=== PATIENT | female | born 1980 | race Caucasian/White ===

== ENCOUNTER 2017-02-19 18:05 | Emergency (ER) | payer MEDICAID, OTHER ==
[2017-02-19 18:06] VITALS: BMI 34.0
[2017-02-19 18:17] VITALS: BP 121/85; PULSE 91; RESP 16; TEMP 98.6; O2SAT 99
--- NOTE | 2017-02-19 20:35 | ED PDOC ---
Arrival/HPI - General Chief Complaint: ENT Problem Time Seen by Provider: 02/19/17 20:33 Historian: Patient - History of Present Illness Narrative History of Present Illness (Text): 02/19/17 22:05 36-year-old female presents today stating that for the past 4 days she's been unable to hear from her right ear. Patient states she uses Q-tips. Patient states the ears feels clogged. She denies pain. Denies fevers or chills. Patient denies URI symptoms. Patient states she has been applying ear wax softening drops without improvement. Time/Duration: Other (4 days) Past Medical History - Provider Review Nursing Documentation Reviewed: Yes - Travel History Have you recently traveled outside [place] w/in the past 3 mons?: No - Past History Past History: No Previous - Infectious Disease Hx of Infectious Diseases: None - Tetanus Immunization Tetanus Immunization: Unknown - Cardiac Hx Cardiac Disorders: No - Pulmonary Hx Respiratory Disorders: No - Neurological Hx Neurological Disorder: No - HEENT Hx HEENT Disorder: No - Renal Hx Renal Disorder: No - Endocrine/Metabolic Hx Endocrine Disorders: No - Hematological/Oncological Hx Blood Disorders: No - Integumentary Hx Dermatological Disorder: No - Musculoskeletal/Rheumatological Hx Musculoskeletal Disorders: No - Gastrointestinal Hx Gastrointestinal Disorders: No - Genitourinary/Gynecological Hx Genitourinary Disorders: Yes Hx Urinary Tract Infection: Yes - Psychiatric Hx Psychophysiologic Disorder: No Hx Substance Use: No - Surgical History Hx Section: Yes Other/Comment: - Anesthesia Hx Anesthesia: Yes - Suicidal Assessment Feels Threatened In Home Enviroment: No Family/Social History - Physician Review Nursing Documentation Reviewed: Yes Family/Social History: Unknown Family HX Smoking Status: Unknown If Ever Smoked Hx Alcohol Use: No Hx Substance Use: No Allergies/Home Meds Allergies/Adverse Reactions: Allergies No Known Allergies Allergy (Verified 02/19/17 18:12) Home Medications: Home Meds Medication Instructions Recorded Confirmed No Known Home Med 02/19/17 02/19/17 Review of Systems - Review of Systems Constitutional: absent: Fatigue, Fevers Eyes: absent: Vision Changes, Eye Pain ENT: Hearing Changes. absent: Sinus Congestion Respiratory: absent: SOB, Cough Cardiovascular: absent: Chest Pain, Palpitations Gastrointestinal: absent: Abdominal Pain, Nausea, Vomiting Genitourinary Female: absent: Dysuria Musculoskeletal: absent: Arthralgias Skin: absent: Rash Neurological: absent: Headache, Dizziness Physical Exam Vital Signs Reviewed: Yes Vital Signs Temp Pulse Resp BP Pulse Ox 02/19/17 18:12 98.6 F 91 H 16 121/85 99 Temperature: Afebrile Blood Pressure: Normal Pulse: Regular Respiratory Rate: Normal Appearance: Positive for: Well-Appearing, Non-Toxic, Comfortable Pain Distress: None Mental Status: Positive for: Alert and Oriented X 3 - Systems Exam Head: Present: Atraumatic Conjunctiva: Present: Normal Ears: Present: Normal Canal, Other (No mastoid tenderness or erythema). No: NORMAL TM (Right TM obstructed by cerumen) Mouth: Present: Moist Mucous Membranes Pharnyx: Present: Normal Respiratory/Chest: Present: Clear to Auscultation Cardiovascular: Present: Regular Rate and Rhythm Neurological: Present: GCS=15 Skin: Present: Warm, Dry, Normal Color. No: Rashes Psychiatric: Present: Alert, Oriented x 3 Medical Decision Making ED Course and Treatment: 02/19/17 22:07 Patient is nontoxic well-appearing in no distress with stable vital signs Patient with cerumen impaction in the right ear Procedure note: Right ear: Using an 18-gauge Angiocath and sterile water the ear was irrigated. Cerumen removed. Hearing restored. Patient tolerated procedure well. No complications I've advised follow-up with primary care physician within the next 2 days. Advised follow-up with the ENT specialist. Advised immediate return is symptoms worsen persist or if new concerning symptoms develop Patient verbalizes understanding of discharge instructions and need for immediate followup. Impression: Cerumen impaction Follow-up with a primary care physician within the next 2 days Follow-up with ENT specialist within the next 2 days Return if symptoms worsen persist or if new concerning symptoms develop Disposition/Present on Arrival - Present on Arrival Any Indicators Present on Arrival: No History of DVT/PE: No History of Uncontrolled Diabetes: No Urinary Catheter: No History of Decub. Ulcer: No History Surgical Site Infection Following: None - Disposition Have Diagnosis and Disposition been Completed?: Yes Diagnosis: Cerumen impaction Disposition: HOME/ ROUTINE Disposition Time: 20:33 Patient Plan: Discharge Condition: GOOD Discharge Instructions (ExitCare): Cerumen Impaction (ED) Additional Instructions: follow up with the primary care physician within the next 2 days follow up with the ENT specialist return if symptoms worsen,persist or if new symptoms develop. Referrals: Yonis Stack MD [Primary Care Provider] - Follow up with primary Aristides De La Rosa DO [Doctor Osteopathy] - Follow up with primary William Galvan DO [Staff Provider] - Follow up with primary Forms: [facility] (Turkish), WORK NOTE
== END 2017-02-19 20:50 | disposition home or self-care (01) ==
LOC: ED 18:05
DX: H61.21 Impacted cerumen, right ear (principal)

== ENCOUNTER 2017-06-09 00:04 | Emergency (ER) | payer OTHER ==
[2017-06-09 00:30] VITALS: BMI 28.7
[2017-06-09 00:39] VITALS: BP 124/75; PULSE 77; RESP 16; TEMP 98.2; O2SAT 98
--- NOTE | 2017-06-09 02:07 | ED PDOC ---
Arrival/HPI - General Chief Complaint: ENT Problem Time Seen by Provider: 06/09/17 00:53 - History of Present Illness Narrative History of Present Illness (Text): 06/09/17 02:04 36 yo F with no significant PMH presents complaining of right ear pain and decreased hearing. She denies fever, chills, URI symptoms, sick contacts. She does not use Q-tips, and has not tried anything for this. She has had this same problem in the past, for which she came to the ER, and reportedly had irrigation with relief of her symptoms. She is requesting irrigation now. She denies otorrhea, or bleeding. Time/Duration: < week Symptom Onset: Gradual Symptom Course: Unchanged Past Medical History - Provider Review Nursing Documentation Reviewed: Yes - Travel History Have you recently traveled outside [place] w/in the past 3 mons?: No - Past History Past History: No Previous - Infectious Disease Hx of Infectious Diseases: None - Tetanus Immunization Tetanus Immunization: Unknown - Cardiac Hx Cardiac Disorders: No - Pulmonary Hx Respiratory Disorders: No - Neurological Hx Neurological Disorder: No - HEENT Hx HEENT Disorder: No - Renal Hx Renal Disorder: No - Endocrine/Metabolic Hx Endocrine Disorders: No - Hematological/Oncological Hx Blood Disorders: No - Integumentary Hx Dermatological Disorder: No - Musculoskeletal/Rheumatological Hx Musculoskeletal Disorders: No - Gastrointestinal Hx Gastrointestinal Disorders: No - Genitourinary/Gynecological Hx Genitourinary Disorders: Yes Hx Urinary Tract Infection: Yes - Psychiatric Hx Psychophysiologic Disorder: No Hx Substance Use: No - Surgical History Hx Section: Yes Other/Comment: - Anesthesia Hx Anesthesia: Yes - Suicidal Assessment Feels Threatened In Home Enviroment: No Family/Social History - Physician Review Nursing Documentation Reviewed: Yes Family/Social History: Unknown Family HX Smoking Status: Unknown If Ever Smoked Hx Alcohol Use: No Hx Substance Use: No Allergies/Home Meds Allergies/Adverse Reactions: Allergies No Known Allergies Allergy (Verified 06/09/17 00:30) Home Medications: Home Meds Medication Instructions Recorded Confirmed No Known Home Med 02/19/17 06/09/17 Review of Systems - Physician Review All systems were reviewed & negative as marked: Yes - Review of Systems ENT: Hearing Changes. absent: Sore Throat, Rhinorrhea, Epistaxis, Sinus Congestion Physical Exam Vital Signs Temp Pulse Resp BP Pulse Ox 06/09/17 00:39 98.2 F 77 16 124/75 98 Temperature: Afebrile Blood Pressure: Normal Pulse: Regular Appearance: Positive for: Well-Appearing, Non-Toxic, Comfortable Pain Distress: None Mental Status: Positive for: Alert and Oriented X 3 - Systems Exam Head: Present: Atraumatic, Normocephalic Pupils: Present: PERRL Extroacular Muscles: Present: EOMI Conjunctiva: Present: Normal Ears: Present: Other (Left EAC and TM normal. Right cerumen impaction. After clearing impaction, TM appears normal, no perforation or bleeding.) Mouth: Present: Moist Mucous Membranes Neck: Present: Normal Range of Motion Respiratory/Chest: Present: Clear to Auscultation, Good Air Exchange Cardiovascular: Present: Regular Rate and Rhythm, Normal S1, S2 Neurological: Present: GCS=15, CN II-XII Intact, Speech Normal Skin: Present: Warm, Dry, Normal Color Psychiatric: Present: Alert, Oriented x 3 Medical Decision Making ED Course and Treatment: 06/09/17 02:08 Impression: Right ear pain Differential Diagnosis included but are not limited to: cerumen impaction, TMJD , otitis externa, otitis media Plan: -- Cerumen disimpaction -- Reassess and disposition Prior Visits: Notes and results from previous visits were reviewed. Patient was last seen in the emergency department on 02/19/17, had cerumen impaction. Progress Notes: -- After cerumen disimpaction, exam is normal. Patient reports relief of symptoms. Disposition/Present on Arrival - Present on Arrival Any Indicators Present on Arrival: No History of DVT/PE: No History of Uncontrolled Diabetes: No Urinary Catheter: No History of Decub. Ulcer: No History Surgical Site Infection Following: None - Disposition Have Diagnosis and Disposition been Completed?: Yes Diagnosis: Cerumen impaction Disposition: HOME/ ROUTINE Disposition Time: 02:12 Patient Plan: Discharge Patient Problems: Current Active Problems Problem Status Onset Cerumen impaction Acute Condition: GOOD Discharge Instructions (ExitCare): Ear Wax Impaction (DC) Additional Instructions: Do not use q-tips, and do NOT put anything in your ears besides drops/ medications prescribed by a doctor Use DEBROX ear drops, 4 drops in right ear 1-2 times weekly, or daily if your symptoms return For new or worsening concerns, return to the ER Referrals: [facility], [Primary Care Provider] - Follow up with primary
== END 2017-06-09 02:15 | disposition home or self-care (01) ==
LOC: ED 00:04
DX: H61.21 Impacted cerumen, right ear (principal)